=== PATIENT | female | born 1960 | race Caucasian/White ===

== ENCOUNTER → 2017-09-10 | Day surgery (SDC) | payer MEDICARE ==
[~2017-09-10] MED LIST: AMLODIPINE PO; DEXAMETHASONE SOD PHOS INJ 4 MG/ML VIAL ONE; DIVALPROEX SOD500 MG PO; DULOXETINE PO; EPHEDRINE SULFATE INJ 50 MG/10 ML SYR ONE; FENTANYL CITRATE/PF 100MCG/2 ML INJ ONE; HYDROCHLOROTHIA25 MG PO; IOPAMIDOL 610MG/1ML 300 MG/ML VIAL IV ONE; LEVOFLOXACIN 500MG/D5W 100ML 100 ML IV ONE; LEVOTHYROXINE175 MCG PO; LIDOCAINE HCL 2% LOCAL INJ 5 ML SDV VIAL INJ ONE; MIDAZOLAM HCL 2 MG/2 ML VIAL ONE; MULTIVITAMINS1 EAC7 PO; NAPROXEN500 M1 PO; ONDANSETRON HCL INJ 2 MG/ML VIAL ONE; OXYBUTYNIN CHLOR5 MG PO; PROPOFOL IV EMULSION 10 MG/ML 20 ML VIAL ONE; SERTRALINE HCL50 MG PO; SEVOFLURANE INHAL SOLN 250 ML PEN BTL ONE; SIMVASTATIN PO; TYLENOL PO; ULTRAM 50MG50 MG PO
--- NOTE | 2017-09-10 14:12 | Operative Report ---
DATE OF PROCEDURE: September 10, 2017 PREOPERATIVE DIAGNOSES 1. Right double-J ureteral stent. 2. History of ureteral calculus. POSTOPERATIVE DIAGNOSES 1. Right double-J ureteral stent. 2. History of ureteral calculus. 3. No calculi seen. OPERATION: Cystourethroscopy and stent removal. FRONT DESK RECEPTIONIST: Dr. Kyle. ANESTHETIC: General. Ms. Sales is a 57-year-old female who presented originally with acute pain and was noted to have a right ureteral calculus. She underwent cystoscopy and stone basket manipulation a few months ago. She has had a stent placed at that time. She presented at this time and a KUB performed showed no evidence of any more stones. This patient was placed on the table in lithotomy position and was prepped and draped in a sterile manner after satisfactory anesthesia. A #22-[place] cystoscope was used and cystourethroscopy was performed and the end of the stent was seen protruding from the right ureteral orifice. This was grabbed under direct vision and fluoroscopic control without any difficulty. The bladder was drained, cystoscope removed, and patient taken to the recovery room in satisfactory condition. DISCHARGE MEDICATION 1. Levaquin 250 mg once a day. 2. Ultracet tablet 1 every 6 to 8 hours p.r.n. and was given 20. Job#: [id number] [place]
== END | disposition home or self-care (01) ==
LOC: OR 08:15
PROVIDERS: ATTEND Specialist
DX: Z46.6 Encounter for fitting and adjustment of urinary device (principal); Z87.442 Personal history of urinary calculi; N39.0 Urinary tract infection, site not specified; R56.9 Unspecified convulsions; G81.94 Hemiplegia, unspecified affecting left nondominant side; I10 Essential (primary) hypertension; E03.9 Hypothyroidism, unspecified
CPT/HCPCS: 52310; 76000; 88300; J1100; J1956; J2001; J2250; J2405; Q9967

== ENCOUNTER 2019-10-11 18:52 | Emergency (ER) | payer MEDICARE ==
[~2019-10-11] VITALS: Ht 170.2 cm; Wt 65.8 kg
[~2019-10-11 18:52] MED LIST changes: -DEXAMETHASONE SOD PHOS INJ 4 MG/ML VIAL ONE; -EPHEDRINE SULFATE INJ 50 MG/10 ML SYR ONE; -FENTANYL CITRATE/PF 100MCG/2 ML INJ ONE; -IOPAMIDOL 610MG/1ML 300 MG/ML VIAL IV ONE; -LEVOFLOXACIN 500MG/D5W 100ML 100 ML IV ONE; -LIDOCAINE HCL 2% LOCAL INJ 5 ML SDV VIAL INJ ONE; -MIDAZOLAM HCL 2 MG/2 ML VIAL ONE; -ONDANSETRON HCL INJ 2 MG/ML VIAL ONE; -PROPOFOL IV EMULSION 10 MG/ML 20 ML VIAL ONE; -SEVOFLURANE INHAL SOLN 250 ML PEN BTL ONE
--- NOTE | 2019-10-11 21:07 | Diagnostic Imaging Report ---
Complete set of images made available for interpretation on 10/11/2019 at 8:50 PM. EXAMINATION: Head and cervical spine CT without contrast. HISTORY: Status post fall, hitting the head. COMPARISON: Head and cervical spine 09/06/2019 TECHNIQUE: Multidetector axial images were obtained without contrast from the foramen magnum to the vertex and through the cervical spine. The images were reconstructed using brain and bone algorithms. Thin section brain images were reformatted into coronal and sagittal planes. Dose modulation, iterative reconstruction, and/or weight based adjustment of the mA/kV was utilized to reduce the radiation dose to as low as reasonably achievable. Image quality: Poor resolution for the head CT due to patient's inability to lay flat. HEAD CT FINDINGS: Skull/scalp: Right superior parietal craniotomy defect. Mild left forehead soft tissue swelling. No acute fractures. Diffuse osteopenia. Parenchyma: Normal. No mass, hemorrhage or CT evidence of acute vascular insult. Brain volume: Generalized supra and infratentorial volume loss, more than what is expected for patient's age. Particularly prominent atrophy of the corpus callosum. Ventricles: Ex vacuo compensatory dilatation to parenchymal volume loss. No hydrocephalus Arteries: No density suggestive of thrombus. Dural sinuses: No abnormal density. Extra-axial spaces: No abnormal density. Foramen magnum: No mass, Chiari malformation, or basilar invagination. Sella: No obvious mass. Paranasal/mastoid sinuses: Imaged portions unremarkable. CERVICAL SPINE CT FINDINGS: Alignment:Cervical dextro scoliosis. Straightening of the cervical lordosis which may be related to muscle spasm or positional. Partially visualized upper thoracic kyphosis. Soft tissues: Normal. Vertebrae: Normal height and density. No acute fracture, infection or neoplasm. Prominent anterior bridging osteophyte from C2 down to C5 and at C6-7. Ossification of the nuchal ligament is incidentally noted. Also incidentally noted bone bridging with possible pseudoarthrosis between the first and second right ribs, unchanged from prior study. Degenerative changes: C1-C2: Normal C2-C3: Small disc osteophyte complex formation and prominent uncovertebral and facet arthrosis minimally left side. Moderate right and severe left foraminal stenosis. Severe spinal canal stenosis. C3-C4: Uncovertebral and facet arthrosis. Mild canal and foraminal narrowing. C4-C5: Bilateral facet arthrosis. No significant stenoses. C5-C6: Disc osteophyte complex formation, bilateral uncovertebral arthrosis. Severe foraminal stenosis worse on the right. C6-C7: Disc osteophyte complex formation and bilateral uncovertebral arthrosis. Severe bilateral foraminal stenosis. C7-T1: Mild facet arthrosis. Moderate left foraminal stenosis. IMPRESSION: Head CT: 1. No acute postraumatic intracranial hemorrhage, unchanged compared to head CT of 09/06/2019. 2. Moderate brain atrophy, more than what is expected for patient's age. 3. Right parietal craniotomy defect. Cervical spine CT: 1. No acute fractures or dislocations. 2. Chronic degenerative changes as described. Note: Acute post traumatic spinal cord, vascular or ligamentous injury cannot adequately be assessed with CT. Signed by: Dr. Catia Serrano M.D. on 10/11/2019 9:05 PM
== END 2019-10-11 23:05 ==
LOC: ER 18:52
DX: S00.83XA Contusion of other part of head, initial encounter (principal); W18.30XA Fall on same level, unspecified, initial encounter; Y92.008 Other place in unspecified non-institutional (private) residence as the place of occurrence of the external cause; M25.512 Pain in left shoulder; M25.511 Pain in right shoulder; G89.29 Other chronic pain; I10 Essential (primary) hypertension; E78.5 Hyperlipidemia, unspecified; G40.909 Epilepsy, unspecified, not intractable, without status epilepticus
CPT/HCPCS: 70450; 72125

== ENCOUNTER 2019-10-14 20:16 | Emergency (ER) | payer MEDICARE ==
[~2019-10-14] VITALS: Ht 170.2 cm; Wt 65.8 kg
--- NOTE | 2019-10-14 20:54 | NUR ---
patient is off to ct scan
--- NOTE | 2019-10-14 21:56 | Diagnostic Imaging Report ---
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 The humeral head projects appropriately over the glenoid. There is moderate glenohumeral joint space narrowing and marginal osteophytosis. Less extensive changes of the acromioclavicular joint. Deformity of the right scapula is unchanged and likely relates to remote trauma. Impression: No acute osseous abnormality. Signed by: Dr. Wilmer Pro M.D. on 10/14/2019 9:54 PM
--- NOTE | 2019-10-14 21:59 | Diagnostic Imaging Report ---
Examination: Single AP view of the chest. COMPARISON: Chain Splitter tomogram from cervical spine CT 10/11/2019 INDICATION: Fall, rule out fracture DISCUSSION: The lungs are well-inflated and without focal airspace consolidation, pleural effusion, or pneumothorax. Cardiomediastinal contour and pulmonary vasculature are within normal limits for portable, AP technique. There is an age-indeterminate fracture of the surgical neck of the left humerus, similar to that seen on 10/11/2019. Posttraumatic deformity of the left clavicle. IMPRESSION: Age-indeterminate fracture of the surgical neck of the left humerus. Correlate for point tenderness. Remote traumatic deformity of the left clavicle and AC joint. No acute cardiopulmonary abnormality. Signed by: Dr. Wilmer Pro M.D. on 10/14/2019 9:57 PM
--- NOTE | 2019-10-14 22:47 | Diagnostic Imaging Report ---
History: Fall, pain Comparison studies:CT head and cervical spine 09/06/2019 Technique: Axial images were obtained from the brain and cervical spine. Coronal and sagittal images reconstructed from the axial data. Intravenous contrast: None Dose modulation, iterative reconstruction, and/or weight based adjustment of the mA/kV was utilized to reduce the radiation dose to as low as reasonably achievable. Findings: Head CT: Scalp/skull: Right parietal craniotomy changes. Right parietal scalp hematoma. No fractures, blastic or lytic lesions. Brain sulci: Moderately prominent. Ventricles: Moderately prominent. No hydrocephalus. Extra-axial spaces: No masses. No fluid collections. Parenchyma: No abnormal densities. No masses, hemorrhage, acute or chronic cortical vascular insults. Sellar/suprasellar region: No abnormalities. Craniocervical junction: Patent foramen magnum. No Chiari one malformation. Cervical spine CT: Fractures: None. Soft tissues: No gross abnormalities. Atlantoaxial articulation: Degenerative changes without acute abnormality. Alignment: Straightening of the normal lordosis. No scoliosis. Cervicomedullary junction: No abnormalities. Patent foramen magnum. Vertebrae: No infection or neoplasm. Degenerative changes: Prominent anterior projecting osteophytes at the mid cervical spine. Severe degenerative foraminal narrowing at C5-6 bilaterally and C6-7 on the right. Moderate degenerative left foraminal narrowing at C2-3 and C6-7. Moderate degenerative canal stenosis at C5-6. Incidental findings: Atherosclerotic calcifications of the aorta. Impression: Head CT: 1. No acute intracranial abnormality. 2. Right parietal scalp hematoma without underlying fracture. 3. Moderate diffuse volume loss. Cervical spine CT: 1. No acute abnormalities. Stable degenerative changes. 2. Cannot exclude ligament, spinal cord and or vascular abnormalities on the basis of this examination. Signed by: DR Grey Cat M.D. on 10/14/2019 10:45 PM
--- NOTE | 2019-10-14 23:27 | NUR ---
jitendra at [facility] called for transport
[2019-10-15 00:07] VITALS: BP 102/73
== END 2019-10-15 00:45 ==
LOC: ER 20:16
DX: S06.0X0A Concussion without loss of consciousness, initial encounter (principal); M54.2 Cervicalgia; M25.511 Pain in right shoulder; W01.0XXA Fall on same level from slipping, tripping and stumbling without subsequent striking against object, initial encounter; Y92.128 Other place in nursing home as the place of occurrence of the external cause; I10 Essential (primary) hypertension; G40.909 Epilepsy, unspecified, not intractable, without status epilepticus; E78.5 Hyperlipidemia, unspecified; Z87.820 Personal history of traumatic brain injury
CPT/HCPCS: 70450; 71045; 72125; 99283